=== PATIENT | male | born 2000 | race Caucasian/White ===

== ENCOUNTER 2025-10-06 17:52 | Emergency (ER) | payer OTHER, SELFPAY ==
[2025-10-06 17:58] VITALS: BP 117/71; PULSE 77; TEMP 36.6; O2SAT 99; BMI 28.2
[2025-10-06 18:31] VITALS: O2SAT 98
--- NOTE | 2025-10-06 18:34 | PC.NURSE ---
pt cooperative with staff, this RN performed EKG on pt. pt restless in ED room. denies hallucinations. pt states depressed with mild SI . denies homicidal ideation, states recent meth use and concern for meth withdrawl.
--- OUTSIDE RECORDS SUMMARY | 2025-10-06 19:06 | XMS_ITS | Clinical Summary ---
Author Organization [facility] Address [address] [facility] [place] [address] Care Team Providers Care Oxide Furnace Tender Name Role Phone Unavailable Primary Care Provider Unavailabl e Source Comments The following information is NOT included in Care Everywhere downloads:Psychiatric notes, ECG results, Cardiac Rehab notes, Pulmonary Function notes, data from [employer] (includes but not limited toPregnancy data,audiograms, eye exams, pre-surgical evaluation notes, well-child exam data).[facility] Allergies Active AllergyReactionsCriticalityNoted DateCommentsPenicillin IKhgxy0809/02/2025 Medications MedicationSigDispense QuantityRefillsLast FilledStart DateEnd DateStatus ARIPiprazole (ABILIFY) 15 MG tablet Take 15 mg by mouth.05/26/2024ctive cloNIDine (CATAPRES) 0.1 MG tablet 04/09/2025tive hydrocortisone 1 % cream Apply 1 Application topically daily.05/26/2024ctive hydrOXYzine (ATARAX) 10 MG tablet Take 10 mg by mouth 3 times daily as needed.Active metFORMIN (GLUCOPHAGE) 500 MG tablet Take 500 mg by mouth.Active mirtazapine (REMERON) 15 MG tablet Take 15 mg by mouth.05/26/2024ctive Multiple Vitamin (Multi-Vitamin) TABS Take 1 Tablet by mouth.05/26/2024ctive nicotine polacrilex (COMMIT) 4 MG lozenge nicotine (polacrilex) 4 mg buccal lozenge activeActive omeprazole (PRILOSEC) 20 MG capsule 04/09/2025tive ondansetron (ZOFRAN-ODT) 4 MG disintegrating tablet Take 4 mg by mouth 3 times daily as needed.03/26/2025tive pantoprazole (PROTONIX) 20 MG tablet Take 20 mg by mouth.05/26/2024ctive propranolol 20 MG tablet 04/05/2025Active risperiDONE (RISPERDAL) 0.25 MG tablet 5Active sertraline (ZOLOFT) 50 MG tablet TAKE 1 TABLET BY MOUTH ONCE DAILY FOR DEPRESSIONActive traZODone (DESYREL) 50 mg tablet Take 50 mg by mouth.4Active bacitracin 500 UNIT/GM OINT ointment Apply topically 3 times daily. Apply thin layer to affected area. 28 g 09/02/2025tive pantoprazole (PROTONIX) 40 MG tablet Take 1 Tablet by mouth daily. 30 Tablet 09/10/2025 6:40 PM EDT15Active famotidine (PEPCID) 20 MG tablet Take 1 Tablet by mouth daily. 30 Tablet 09/10/2025 6:40 PM EDT15Active albuterol (PROVENTIL) (2.5 MG/3ML) 0.083% nebulizer solution Use 3 mL via nebulizer every 4 hours as needed for Wheezing. 180 mL 09/10/2025 6:40 PM EDT15Active doxycycline (VIBRAMYCIN) 100 MG capsule Take 1 Capsule by mouth 2 times daily for 7 days. 14 Capsule Expired predniSONE (DELTASONE) 20 MG tablet Take 2 Tablets by mouth daily for 5 days. 10 Tablet Expired albuterol (PROVENTIL) (2.5 MG/3ML) 0.083% nebulizer solution Use 3 mL via nebulizer every 4 hours as needed for Wheezing. 180 mL Discontinued Active Problems ProblemNoted DateDiagnosed DateAnxiety, fzqwmrkzxyn37/11/2024Intravenous drug user07/17/2023Right arm pxmepvutbt87/25/2023utism spectrum zrqykrll10/26/2021 Methamphetamine use disorder, bycjyb7708/29/2021Methamphetamine abuse05/23/2021 Alcohol use disorder, moderate, vymjguhzjr49/22/2020Moderate episode of recurrent major depressive ontscbjq35/09/2020Major upjcgijbic95/30/2020Mood /18/2020Severe episode of recurrent major depressive disorder, without psychotic zazvpjtc38/18/2020Alcohol abuse12/24/2019 Encounters DateTypeDepartmentCare NbksVoctlktycsp57/11/2025Patient Outreach [facility] Care Management/Patient Access [address] [place] [phone] Yessi Britt Care Coordination; Medical Record Review; Appointment Khgwdahyeyxz64/03/2025 Patient Outreach [facility] Care Management/Patient Access [address] [place] [phone] Yessi Britt 09/11/2025Patient Outreach [facility] Care Management/Patient Access [address] [place] [phone] Yessi Britt ER follow-up; Care Coordination; Medical Record Review; APPOINTMENT SCHEDULING 09/10/2025 4:59 PM EDT - 09/10/2025 5:[facility] [address] [place] [phone] Julian Hanks MD Refill (Pt said he was seen in ED yesterday and was given a nebulizer but was not prescribed and medications ) Discharge Disposition: Discharge to Home09/10/20255925Bjbqme48/29/2025 1:35 PM EDT - 09/09/2025 2:31 PM [facility] [address] [place] [phone] Papito Palacios MD Cough (X a few days, quit smoking today, not c/o chest discomfort. /) Discharge Disposition: Mcuifl41Telephone [facility] Emergency Dept [address] [place] [phone] Amador Ruiz PA-C Requesting Hitiynutuiu79/29/2548Nrkarh88/27/2025 12:15 PM EDTOffice Visit [address], [address] [place] [address] Miryam Abrams APRN-[place]LEY Cough, unspecified type (Primary Dx)09/03/2025 1:37 PM EDT - 09/03/2025 3:33 PM [facility]TES[facility] [address] [place] [address] Naomi Varma MD Dreher, Paul, MD Duodenal ulcer (C/o n/v/d x 1 day pt states he has an ulcer ) Discharge Disposition: Discharge to Home09/03/20258484Ongyig42/23/2025Patient Outreach [facility] Care Management/Patient Access [address] [place] [address] Yessi Britt ER follow-up; Care Coordination; Medical Record Review; Left Message To Call Back; Reminder Letter Sent09/02/2025 8:57 PM EDT - 09/02/2025 10:[address] [facility] Emergency Dept [address] [place] [address] Billy Lei DO Foot/toe symptoms (Patient c/o right great toe pain and swelling ) Discharge Disposition: Discharge to Home09/02/2025Travelfrom Last 3 Months Immunizations ImmunizationAdministration DatesNext DueHPV, 9-valent (Gardasil 9) (XIJ=936) 11/01/2021,10/03/2021Hep A (peds/adol, 2 dose) (CVX=83)03/31/2010,07/27/2008Hep B (adult, 3-dose) or (adol 11-15, 2-dose) (CVX=43)11/01/2021,10/03/2021Hepatitis A, Adult (CVX=52)09/19/2021Influenza, seasonal, [place], quadrivalent, 0.5mL dose, no preservative (TMA=736)09/19/2021Meningococcal conjugate (MCV4,Men-ACWY), Menactra (MCV4P) (JAK=707)03/31/2010Meningococcal conjugate (MCV4,Men-ACWY), Menveo (MCV4O) (FXF=863)06/21/2017Moderna Monovalent (12+ yrs) COVID-19 vaccine, mRNA, spike protein, LNP, PF, 100 mcg/0.5 mL (FFO=090)09/19/2021Tdap (GCI=870)09/19/2021,05/02/2018,03/31/2010Varicella (Chickenpox) (CVX=21)07/27/2008,03/19/2002 Social History Tobacco UseTypesPacks/DayYears UsedDateSmoking Tobacco: NeverSmokeless Tobacco: Never Tobacco Cessation:Counseling Given: Not Answered Sex and Gender InformationValueDate RecordedSex Assigned at BirthNot on file Legal YaqByws86/22/2025 8:51 PM EDTGender IdentityNot on fileSexual Orientation Not on file Last Filed Vital Signs Vital SignReadingTime TakenCommentsBlood Aqkhtygm110/7909/10/2025 5:05 PM EDT Ztdan407609/10/2025 5:05 PM DWJDmwjfwpvfgo41.8 ??C (98.3 ??F)09/10/2025 5:05 PM EDTRespiratory Neff6167 5:05 PM EDTOxygen Nwbtrsrnmr28%09/10/2025 5:05 PM EDTInhaled Oxygen Concentration--Urxqnz54.8 kg (191 lb 6.4 oz)09/09/2025 1:38 PM EDTHeight--Body Mass Index-- Plan of Treatment Health MaintenanceDue DateLast DoneCommentsPneumococcal Vaccine(s) (1 of 2 - PCV)2017HPV Vaccine (3 - Male 3-dose series), 10/03/2021Hepatitis B (HBV) Vaccine (3 of 3 - 19+ 3-dose series)04/02/2022 11/01/2021, 10/03/2021OVID-19 Vaccine (2 - 2024- season) Influenza Vaccine (#1)2025Tetanus (Td or Tdap) Ewqaest7809/19/2031 09/19/2021, 05/02/2018, 03/31/2010Shingles (RZV) Vaccine (1 of 2)2048 Hepatitis A (HAV) BdysospZrmaeuloq98/08/2021, 03/31/2010, 07/27/2008Tdap Booster Ajvpircmj12/08/2021, 05/02/2018, 03/31/2010HIV WebqMdemgtfby50/24/2023Hepatitis C AqmouqjuMrjwxqvlg64/24/2023 Procedures Procedure NamePriorityDate/TimeAssociated DiagnosisCommentsXR CHEST PA+LAT 2 YUXCMRMKE36/29/2025 2:05 PM EDT EKG 12 LEAD - TRZTBWLVjdjyxp47/29/2025 1:[address] ABD/PELVIS ED I/V BRAYAN W/ LYADDVAJRFXE27/23/2025 2:37 PM EDT CBC WITH LLCAPOXVXKDYLMYI53/23/2025 2:03 PM EDT PJXLSZKRQG13/23/2025 2:03 PM EDT COMPLETE BLOOD COUNT W/NDMYBFBV39/23/2025 2:03 PM EDT ORJJSDPBXBTHX58/23/2025 2:03 PM EDT HC HEPATIC FUNCTION CSOHJDCPE33/23/2025 2:03 PM EDT BASIC METABOLIC JRIRXVBTS23/23/2025 2:03 PM EDT XR FOOT RIGHT 3 TXLDJASKX04/22/2025 9:29 PM EDT from Last 3 Months Results * XR CHEST PA+LAT 2 VIEWS (09/09/2025 2:05 PM EDT)Anatomical RegionLaterality ModalityXR ChestN/AComputed RadiographySpecimen (Source)Anatomical Location / LateralityCollection Method / VolumeCollection TimeReceived Time09/09/2025 2:19 PM EDT Narrative 09/09/2025 2:50 PM EDT EXAMINATION: XR CHEST PA+LAT 2 VIEWSPRO 09/09/2025 02:05 PM CLINICAL HISTORY: cough, worse wheezing ASSOCIATED DIAGNOSIS: cough, worse wheezing ORDERING PROVIDER: AMADOR RUIZ TECHNOLOGISTS NOTE: COMPARISON: CT ABD/PELVIS ED I/V BRAYAN W/ CONTRAST 09/03/2025 2:39 PM FINDINGS: Cardiomediastinal silhouette: Normal. Lungs/Pleura: No focal pulmonary consolidation, effusion or pneumothorax. The lungs are hyperinflated. Musculoskeletal: Unremarkable. IMPRESSION: Hyperinflation without focal consolidation. MACRO: None I have personally reviewed the images and agree with the resident's interpretation. Procedure Note Fortunato Oquendo MD - 09/09/2025 EXAMINATION: XR CHEST PA+LAT 2 VIEWSPRO 09/09/2025 02:05 PM CLINICAL HISTORY: cough, worse wheezing ASSOCIATED DIAGNOSIS: cough, worse wheezing ORDERING PROVIDER: AMADOR RUIZ TECHNOLOGISTS NOTE: COMPARISON: CT ABD/PELVIS ED I/V BRAYAN W/ CONTRAST 09/03/2025 2:39 PM FINDINGS: Cardiomediastinal silhouette: Normal. Lungs/Pleura: No focal pulmonary consolidation, effusion or pneumothorax.The lungs are hyperinflated. Musculoskeletal: Unremarkable. IMPRESSION: Hyperinflation without focal consolidation. MACRO: None I have personally reviewed the images and agree with the resident's interpretation. Authorizing ProviderResult TypeResult StatusSoutheastern Arizona Behavioral Health Servicessidney Ruiz PA-CEC DIAGNOSTIC X-RAY 2Final Result * EKG 12 LEAD - PERFORM (09/09/2025 1:35 PM EDT)ComponentValueRef RangeTest MethodAnalysis TimePerformed AtPathologist SignatureVentricular jvhg41TNDINJC Atrial Eymw93QYYCGLLI-N Qfcjgzkf850bgPLPTGSE zcqfuenx18roNMHBQ-K fdpvxflq030vk MUSEQTC CALCULATION(BEZET)389msMUSEP xxsx29iwjukueJDTQM cozp7nmefowhPYMIY axis 38degreesMUSEDiagnosisNormal sinus rhythm with sinus arrhythmia Normal ECG No previous ECGs available Confirmed by KATYA SEPULVEDA ([id number]) on 09/09/2025 4:39:34 PM MUSESpecimen (Source)Anatomical Location / LateralityCollection Method / Volume Collection TimeReceived Time09/09/2025 1:35 PM EDT1 4:39 PM EDT Narrative Authorizing ProviderResult TypeResult StatusAnnaleAnaheim General Hospital PA-CIP VITAL SIGN ORDERSEdited Result - FinalPerforming OrganizationAddressCity/State/ZIP CodePhone Number MUSE Sandeep [facility] [place] [address] * CT ABD/PELVIS ED I/V BRAYAN W/ CONTRAST (09/03/2025 2:37 PM EDT)ComponentValue Ref RangeTest MethodAnalysis TimePerformed AtPathologist SignatureCTDI VOL0.20 (mGy),12.07 (mGy)RADIOLOGYPHANTOM TYPEIEC Body Dosimetry Phantom,IEC Body Dosimetry PhantomRADIOLOGYCT BTT949.92 (mGy.cm)RADIOLOGYCT Series ABD/PELVIS,ABD/PELVISRADIOLOGYAnatomical RegionLateralityModalityCT AbdomenN/A Computed TomographySpecimen (Source)Anatomical Location / LateralityCollection Method / VolumeCollection TimeReceived Time09/03/2025 3:00 PM EDT Narrative 09/03/2025 4:06 PM EDT EXAMINATION: CT ABD/PELVIS ED I/V BRAYAN W/ CONTRASTPRO 09/03/2025 02:37 PM CLINICAL HISTORY: Epigastric pain; Vomiting ASSOCIATED DIAGNOSIS: Epigastric pain Vomiting ORDERING PROVIDER: TRISHA GOULD TECHNOLOGISTS NOTE: COMPARISON: None TECHNIQUE: Contiguous axial images were obtained through the abdomen and pelvis from the level of the diaphragmatic domes through the pubic symphysis following bolus administration of intravenous contrast. MPR sagittal and coronal reconstructions were obtained from the axial data. Before infusion of intravenous contrast, radiology personnel investigated the possibility of an allergic history and of any history of reaction to iodinated contrast material. Contrast Protocol: Omnipaque 350 [>or =100lb] 100 ml [<100 lb] 1 ml per 1 lb. INTRA-PROCEDURE MEDS: iohexol (OMNIPAQUE) 350 MG/ML injection 100 mL Route: Intravenous FINDINGS: Included images of the lower thorax: Evaluation is limited due to motion artifact. Linear juxtapleural nodularity in the lateral left lower lobe (Series 201, Image 5), focal area of atelectasis versus a subpleural lymph node. No focal lung consolidation or pleural effusion. Hepatobiliary: The liver parenchyma has low attenuation consistent with hepatic steatosis. No focalsuspicious hepatic lesion is present. There is no biliary dilatation. Incomplete distention of the bladder limits the evaluation. Focal area of fatty infiltration along the falciform ligament. Partial contraction of the gallbladder limits the evaluation. Pancreas: Unremarkable Spleen: Unremarkable Adrenal Glands: Unremarkable Kidneys, ureters, and bladder: No calculi or hydroureteronephrosis. Incomplete distention of the bladder limits the evaluation. Abdominal and pelvic vasculature: Unremarkable GI tract: No evidence of obstruction. The appendix is surgically absent. Physiologic distention of the stomach with intraluminal debris. Peritoneum and retroperitoneum: No free fluid or free air. Tiny fat-containing midline ventral umbilical hernia. Lymph Nodes: No abdominal or pelvic lymphadenopathy. Prostate and seminal vesicles: Suboptimally evaluated by CT. Visualized musculoskeletal structures: No acute fracture or destructive osseous lesion is identified. Focal area of nonspecific subcutaneous density in the left posterior gluteal (Series 201, Image 115) region, of unknown clinical significance. IMPRESSION: 1. ??No CT findings to explain patient's epigastric pain. MACRO: None Procedure Note Janay Garcia MD - 09/03/2025 EXAMINATION: CT ABD/PELVIS ED I/V BRAYAN W/ CONTRASTPRO 09/03/2025 02:37PM CLINICAL HISTORY: Epigastric pain; Vomiting ASSOCIATED DIAGNOSIS: Epigastric pain Vomiting ORDERING PROVIDER: TRISHA GOULD TECHNOLOGISTS NOTE: COMPARISON: None TECHNIQUE: Contiguous axial images were obtained through the abdomen andpelvis from the level of the diaphragmatic domes through the pubicsymphysis following bolus administration of intravenous contrast. MPRsagittal and coronal reconstructions were obtained from the axial data.Before infusion of intravenous contrast, radiology personnel investigatedthe possibility of an allergic history and of any history of reaction toiodinated contrast material. Contrast Protocol: Omnipaque 350 [>or =100lb]100 ml [<100 lb] 1 ml per 1 lb. INTRA-PROCEDURE MEDS: iohexol (OMNIPAQUE) 350 MG/ML injection 100 mL Route: Intravenous FINDINGS: Included images of the lower thorax: Evaluation is limited due to motion artifact. Linear juxtapleural nodularity in the lateral left lower lobe(Series 201, Image 5), focal area of atelectasis versus a subpleural lymphnode. No focal lung consolidation or pleural effusion. Hepatobiliary: The liver parenchyma has low attenuation consistent withhepatic steatosis. No focal suspicious hepatic lesion is present. There isno biliary dilatation. Incomplete distention of the bladder limits theevaluation. Focal area of fatty infiltration along the falciform ligament.Partial contraction of the gallbladder limits the evaluation. Pancreas: Unremarkable Spleen: Unremarkable Adrenal Glands: Unremarkable Kidneys, ureters, and bladder: No calculi or hydroureteronephrosis.Incomplete distention of the bladder limits the evaluation. Abdominal and pelvic vasculature: Unremarkable GI tract: No evidence of obstruction. The appendix is surgically absent. Physiologic distention of the stomach with intraluminal debris. Peritoneum and retroperitoneum: No free fluid or free air. Tinyfat-containing midline ventral umbilical hernia. Lymph Nodes: No abdominal or pelvic lymphadenopathy. Prostate and seminal vesicles: Suboptimally evaluated by CT. Visualized musculoskeletal structures: No acute fracture or destructiveosseous lesion is identified. Focal area of nonspecific subcutaneousdensity in the left posterior gluteal (Series 201, Image 115) region, ofunknown clinical significance. IMPRESSION: 1. No CT findings to explain patient's epigastric pain. MACRO: None Authorizing ProviderResult TypeResult StatusTheresa Kae PA-CEC CT SCANFinal Result * (ABNORMAL) CBC WITH DIFFERENTIAL (09/03/2025 2:03 PM EDT)ComponentValueRef RangeTest MethodAnalysis TimePerformed AtPathologist SignatureWBC9.54.5 - 11.5 K/uL09/03/2025 2:23 PM [facility] PATHOLOGY LABORATORYRBC4.78 4.50 - 5.90 M/uL09/03/2025 2:23 PM [facility] PATHOLOGY OAVYYIVSCTUqjqlnxzub81.213.9 - 16.3 g/dL09/03/2025 2:23 PM [facility] PATHOLOGY XVBSRKILXHQdmfvdxylu53.341.0 - 53.0 %09/03/2025 2:23 PM EDT [facility] PATHOLOGY KWXPDTTELVRJP9022 - 100 fL09/03/2025 2:23 PM [facility] PATHOLOGY DLDDZSNPAPPNY60.726.0 - 34.0 pg09/03/2025 2:23 PM [facility] PATHOLOGY HZZCVCJCYOWDQC62.232.0 - 35.9 g/dL 09/03/2025 2:23 PM [facility] PATHOLOGY FTHTDALNDUEgwzfsyv579384 - 400 K/uL09/03/2025 2:23 PM [facility] PATHOLOGY LABORATORY RDW-CV12.811.5 - 14.5 %09/03/2025 2:23 PM [facility] PATHOLOGY LABORATORYMPV7.67.5 - 11.2 fL09/03/2025 2:23 PM [facility] PATHOLOGY LWRWHENCHJQczlhpalnhm41.131.0 - 76.0 %09/03/2025 2:23 PM [facility] PATHOLOGY LABORATORYNeutrophil #6.601.50 - 8.00 K/uL 09/03/2025 2:23 PM [facility] PATHOLOGY LABORATORYLymphocytes 21.0(L)24.0 - 44.0 %09/03/2025 2:23 PM [facility] PATHOLOGY LABORATORYLymphocytes #2.001.00 - 4.80 K/uL09/03/2025 2:23 PM [facility] PATHOLOGY LABORATORYMonocytes6.62.0 - 11.0 %09/03/2025 2:23 PM [facility] PATHOLOGY LABORATORYMonocyte #0.600.20 - 1.00 K/uL09/03/2025 2:23 PM [facility] PATHOLOGY LABORATORYEosinophil1.60.1 - 4.0 % 09/03/2025 2:23 PM [facility] PATHOLOGY LABORATORYEosinophil # 0.200.00 - 0.70 K/uL09/03/2025 2:23 PM [facility] PATHOLOGY LABORATORYBasophils0.7<=1.9 %09/03/2025 2:23 PM [facility] PATHOLOGY LABORATORYBasophil #0.100.00 - 0.20 K/uL09/03/2025 2:23 PM [facility] PATHOLOGY LABORATORYNucleated RBC<1.510/ 2:23 PM [facility] PATHOLOGY LABORATORYNucleated RBC #0.00K/uL09/03/2025 2:23 PM [facility] PATHOLOGY LABORATORYSpecimen (Source) Anatomical Location / LateralityCollection Method / VolumeCollection Time Received TimeBloodBLOOD SPECIMEN / UnknownVenipuncture / Ucjmmjy8609/03/2025 2:03 PM EDT1 2:20 PM EDT Narrative Authorizing ProviderResult TypeResult StatusTherjaycee MCNEALCEC LAB ORDER ONLY Final ResultPerforming OrganizationAddressCity/State/ZIP CodePhone Number [facility] PATHOLOGY LABORATORY [address] * HEPATIC FUNCTION PANEL (09/03/2025 2:03 PM EDT)ComponentValueRef RangeTest MethodAnalysis TimePerformed AtPathologist SignatureAlbumin4.73.5 - 5.7 g/dL 09/03/2025 2:56 PM [facility] LABORATORYBilirubin, Direct0.060.03 - 0.18 mg/dL09/03/2025 2:56 PM [facility] PATHOLOGY LABORATORYBilirubin, Total0.40.3 - 1.0 mg/dL09/03/2025 2:56 PM EDT [facility] PATHOLOGY LABORATORYComment:Note updated reference range.Alkaline Capueooiesw6269 - 104 IU/L1 2:56 PM [facility] PATHOLOGY LABORATORYALT (SGPT)127 - 52 IU/L1 2:56 PM [facility] PATHOLOGY LABORATORYAST (SGOT)1613 - 39 IU/L1 2:56 PM [facility] PATHOLOGY LABORATORYProtein, Total7.46.1 - 7.9 g/dL09/03/2025 2:56 PM [facility] PATHOLOGY LABORATORYComment: Note updated reference range.Specimen (Source)Anatomical Location / Laterality Collection Method / VolumeCollection TimeReceived TimeBloodBLOOD SPECIMEN / UnknownVenipuncture / Nrrhchx3909/03/2025 2:03 PM EDT1 2:20 PM EDT Narrative Authorizing ProviderResult TypeResult StatusTrisha MCNEALC98 GENERAL LAB Final ResultPerforming OrganizationAddressCity/State/ZIP CodePhone Number [facility] PATHOLOGY LABORATORY [address] * (ABNORMAL) BASIC METABOLIC PANEL (09/03/2025 2:03 PM EDT)ComponentValueRef RangeTest MethodAnalysis TimePerformed AtPathologist YsmwymecbTfkfkgp304(H)74 - 109 mg/dL09/03/2025 2:56 PM [facility] PATHOLOGY LABORATORY Huiwwy722104 - 145 mmol/L1 2:56 PM [facility] PATHOLOGY LABORATORYPotassium4.03.5 - 5.0 mmol/L1 2:56 PM [facility] PATHOLOGY LABORATORYCarbon Eidwxvy4528 - 31 mmol/L1 2:56 PM [facility] PATHOLOGY BFYJAKVXRRXslxpxks23688 - 107 mmol/L 09/03/2025 2:56 PM [facility] PATHOLOGY LABORATORYBlood Urea Yeynxlwz547 - 25 mg/dL09/03/2025 2:56 PM [facility] PATHOLOGY LABORATORYCreatinine1.060.70 - 1.30 mg/dL09/03/2025 2:56 PM [facility] PATHOLOGY LABORATORYCalcium9.98.6 - 10.3 mg/dL09/03/2025 2:56 PM EDT [facility] PATHOLOGY LABORATORYAnion Zut0643 - 2:56 PM [facility] PATHOLOGY LABORATORYEstimated GFR (CKD-EPI)99>=60 mL/min/1.27wcu71 2:56 PM [facility] PATHOLOGY LABORATORY Comment: 2020 CKD EPI Equation using Creatinine without Race Comment: ??Estimated glomerular filtration rate (eGFR) is calculated without a race coefficient. Values should be interpreted in the context of the patient's full clinical presentation. Reference: 1. Jamar C, Koko M, Kaylie SHEA, et al.. A Unifying Approach for GFR Estimation: Recommendations of the NKF-ASN Task Force on Reassessing the Inclusion of Race in Diagnosing Kidney Disease. AmericanJournal of Kidney Diseases 2021;79(2):268-88.e1. 2. N Engl J Med 1 Vol. 385 Issue 19 Pages 1480-9301 Specimen (Source)Anatomical Location / LateralityCollection Method / Volume Collection TimeReceived TimeBloodBLOOD SPECIMEN / UnknownVenipuncture / Unknown 09/03/2025 2:03 PM EDT1 2:20 PM EDT Narrative Authorizing ProviderResult TypeResult StatusTherjaycee MCNEALC98 GENERAL LAB Final ResultPerforming OrganizationAddressCity/State/ZIP CodePhone Number [facility] PATH[facility] LABORATORY [address] [place] [address] * MAGNESIUM (09/03/2025 2:03 PM EDT)ComponentValueRef RangeTest MethodAnalysis TimePerformed AtPathologist SignatureMagnesium2.11.9 - 2.7 mg/dL09/03/2025 2:56 PM [facility] PATHOLOGY LABORATORYSpecimen (Source) Anatomical Location / LateralityCollection Method / VolumeCollection Time Received TimeBloodBLOOD SPECIMEN / UnknownVenipuncture / Pklcyck0009/03/2025 2:03 PM EDT1 2:20 PM EDT Narrative Authorizing ProviderResult TypeResult StatusTherjaycee MCNEALC98 GENERAL LAB Final ResultPerforming OrganizationAddressCity/State/ZIP CodePhone Number [facility]ORY [address] [place] [address] * LIPASE (09/03/2025 2:03 PM EDT)ComponentValueRef RangeTest MethodAnalysis Time Performed AtPathologist BufcouahuDutefv2990 - 82 IU/L1 2:56 PM [facility] PATHOLOGY LABORATORYSpecimen (Source)Anatomical Location / LateralityCollection Method / VolumeCollection TimeReceived TimeBloodBLOOD SPECIMEN / UnknownVenipuncture / Izwvxss8809/03/2025 2:03 PM EDT1 2:20 PM EDT Narrative Authorizing ProviderResult TypeResult StatusTherjaycee MCNEALC98 GENERAL LAB Final ResultPerforming OrganizationAddressCity/State/ZIP CodePhone Number [facility] [address] [place] [address] * XR FOOT RIGHT 3 VIEWS (09/02/2025 9:29 PM EDT)Anatomical RegionLaterality ModalityXR Right Lower Extremity, FootRightComputed RadiographySpecimen (Source)Anatomical Location / LateralityCollection Method / VolumeCollection TimeReceived Time09/02/2025 9:42 PM EDT Narrative 09/02/2025 9:58 PM EDT EXAMINATION: XR FOOT RIGHT 3 VIEWSPRO/RT 09/02/2025 09:29 PM CLINICAL HISTORY: right great toe swelling ASSOCIATED DIAGNOSIS: ORDERING PROVIDER: FORTUNATO ROE NOTE: COMPARISON: None IMPRESSION: No acute right foot fracture or dislocation is identified. No radiopaque foreign bodies. No erosions. Moderate first digit soft tissue swelling. Right foot MACRO: None I have personally reviewed the images and agree with the resident's interpretation. Procedure Note Carmel Fuentes MD - 09/02/2025 EXAMINATION: XR FOOT RIGHT 3 VIEWSPRO/RT 09/02/2025 09:29 PM CLINICAL HISTORY: right great toe swelling ASSOCIATED DIAGNOSIS: ORDERING PROVIDER: FORTUNATO ROE NOTE: COMPARISON: None IMPRESSION: No acute right foot fracture or dislocation is identified. No radiopaqueforeign bodies. No erosions. Moderate first digit soft tissue swelling. Right foot MACRO: None I have personally reviewed the images and agree with the resident's interpretation. Authorizing ProviderResult TypeResult StatusMichael Corey PA-CEC DIAGNOSTIC X-RAYFinal Result from Last 3 Months Insurance
--- OUTSIDE RECORDS SUMMARY | 2025-10-06 19:06 | XMS_ITS | Encounter Summary ---
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 Name Role Phone Unavailable Primary Care Provider Unavailabl e Reason for Visit * ReasonCommentsCare CoordinationMedical Record ReviewAppointment Confirmation Encounter Details DateTypeDepartmentCare Team (Latest Contact Info)Rvogwhbkdzf12/11/2025Patient Outreach [facility] Care Management/Patient Access [address] [place], [place] [id number] Yessi Britt [address] [place], [place] [id number] Care Coordination; Medical Record Review; Appointment Confirmation Social History Tobacco UseTypesPacks/DayYears UsedDateSmoking Tobacco: NeverSmokeless Tobacco: NeverSex and Gender InformationValueDate RecordedSex Assigned at BirthNot on fileLegal BvtJrmj80/22/2025 8:51 PM EDTGender IdentityNot on fileSexual OrientationNot on filedocumented as of this encounter Miscellaneous Notes * Telephone Encounter - Yessi Britt - 09/22/2025 3:11 PM EST Home Office Claim Specialist Chart Review Follow Up Upon chart review 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 Outreach made to patient to assist with rescheduling- Pt answered the call and then disconnected. Attempted to call back and no answer - LVM Letter sent . documented in this encounter Plan of Treatment Not on file documented as of this encounter Visit Diagnoses Not on filedocumented in this encounter
--- OUTSIDE RECORDS SUMMARY | 2025-10-06 19:06 | XMS_ITS ---
Author Organization [facility] Address [address] [place] [address] Care Team Providers Care Aircraft Mechanic Armament Name Role Phone Unavailable Primary Care Provider Unavailabl e General Case Management Program Status:Closed (Closed) Start date:09/11/2025 Enrollment date:09/14/2025 Enrollment reason:Identified using ED discharge data End date:09/22/2025 Close reason:Focused outreach encounter completed Related social drivers of health:Intimate Partner Violence, Social Connections, Alcohol Use, Financial Resource Strain, Depression, Stress, Physical Activity, Food Insecurity, Transportation Needs, Housing Stability Continued Care and Services Coordination
--- NOTE | 2025-10-06 19:13 | ECG_ITS ---
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 Measurements Intervals [place] Rate: 60 P: 47 ID: [id number] QRS: 72 QRSD: 88 T: 21 QT: 376 QTc: 377 Interpretive Statements 1100 Sinus rhythm 9110 normal ECG No previous ECG available for comparison Electronically Signed On 10-06-2025 22:12:00 EST by ASCENCION VILLALTA M.D.
[2025-10-06] MEDS: CEPHALEXIN 500 MG CAPSULE PO (19:38)
[2025-10-06 19:51] LABS: Hematocrit 46.0 % (42.0-54.0); Hemoglobin 15.3 g/dL (14.0-18.0); Immature Granulocytes Abs Auto 0.04 10^3/uL (0.00-0.03); Immature Granulocytes Pct Auto 0.5 % (0.0-0.5); Lymphocytes Absolute Auto 2.5 10^3/uL (1.2-3.8); Mean Corpuscular HGB Conc 33.3 g/dL (29.9-35.2); Mean Corpuscular Hemoglobin 31.7 pg (25.9-34.0); Mean Corpuscular Volume 95.2 fL (80.0-94.0); Platelet Count 289 10^3/uL (150-450); Red Blood Count 4.83 10^6/uL (4.70-6.10); White Blood Count 8.4 10^3/uL (4.0-11.0)
[2025-10-06 19:56] LABS: Glucose Urine UA NEGATIVE (NEGATIVE)
[2025-10-06 20:02] LABS: Anion Gap 9.3; Blood Urea Nitrogen 17.0 mg/dL (7.0-18.0); Calcium 9.3 mg/dL (8.5-10.1); Carbon Dioxide 32.5 mmol/L (21.0-32.0); Chloride 101 mmol/L (98-107); Estimated GFR (African America >60 (>=60 mL/min/1.73m^2); Estimated GFR (Non-African Ame >60 (>=60 mL/min/1.73m^2); Glucose 94 mg/dL (74-106); Potassium 4.8 mmol/L (3.5-5.1); Sodium 138 mmol/L (136-145)
[2025-10-06 20:05] LABS: Cannabinoid Screen Urine POSITIVE (NEGATIVE); Methamphetamines Screen Urine NEGATIVE (NEGATIVE); Tricyclic Antidepressant Urine NEGATIVE (NEGATIVE)
--- NOTE | 2025-10-06 20:08 | ED_ITS ---
HPI HPI - General Adult General Chief complaint: Psychiatric Symptoms Stated complaint: RIGHT TOE INFECTED Time Seen by Provider: 10/06/25 18:16 Source: patient Mode of arrival: walk-in History of Present Illness HPI narrative: Patient is a 24-year-old male who presents to the emergency department with complaints of an infection starting on his right great toe. The redness started about 2 days ago, he denies any trauma to the toe. He also reports that he is at [facility] and was having thoughts of suicide today. 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 He does have a history of depression that he takes Zoloft for. He does have a history of a past suicide attempt but denies any specific plan of suicide.. He states the only new thing in his life is his detoxification from meth. On my arrival for evaluation he declined having suicidal ideations after originally reporting to someone else that he did. For his great toe he had an infection about a month ago and was treated with antibiotics at the hospital. He is unsure what hospital this was. He never followed up with anyone afterwards and just finished all the antibiotics. He is not diabetic. Related Data Home Medications ?Medication ?Instructions ?Recorded ?Confirmed aripiprazole 15 mg tablet (Abilify) 15 mg PO DAILY 10/06/25 sertraline 100 mg tablet (Zoloft) 100 mg PO DAILY 09/1310/06/25 Previous Rx's ?Medication ?Instructions ?Recorded doxycycline hyclate 100 mg tablet 100 mg PO BID 7 days #14 tabs 10/06/25 Allergies Allergy/AdvReac Type Severity Reaction Status Date / Time Penicillins Allergy Hives Verified 10/06/25 17:57 Opioid HPI Opioid Management Most Recent Opioid Data: Last Pain Scale 8 Today, 17:58 Ur Phencyclidine Scrn, (NEGATIVE) Negative Today, 19:20 Review of Systems ROS Status of ROS 10 or more systems reviewed and unremark able except as noted in history and below PFSH PFSH Social History Little interest or pleasure in doing things: not at all Feeling down, depressed, or hopeless: more than half the days Exam Narrative Exam Narrative: General: No distress, age-appropriate Skin: Warm, dry, no pallor. No rash. Head: Normocephalic, atraumatic. Neck: Supple, non-tender. Eye: Pupils are equal, round and EOMI. No scleral icterus. Ears, Nose, Mouth, and Throat: No nasal mucosal hypertrophy. Oral mucosa is arya st, no posterior oropharynx erythema, uvula is mid-line Cardiovascular: Regular Rate and Rhythm without murmur, gallop or rub. Respiratory: No accessory muscle use or respiratory distress. Musculoskeletal: Full ROM of all extremities, no calf or popliteal tenderness. Mild erythema at the right great toe medial nail fold. No induration. No drainage. No wounds. GI: Abdomen is soft, non-distended, non tender to palpation. No masses appreciated. No rebound, guarding, or rigidity noted. Neurological: A&O x4. No cranial nerve dysfunction observed. No truncal ataxia. Moves all extremities. Sensation intact. Psychiatric: Cooperative and interactive. Normal mood and affect. Constitutional Vital Signs, click to edit/add: Last Vital Signs Temp 97.9 F 10/06/25 17:58 Pulse 77 10/06/25 17:58 Resp 16 10/06/25 17:58 BP 117/71 10/06/25 17:58 Pulse Ox 98 10/06/25 18:31 O2 Del Method Room Air 10/06/25 18:31 Documenting provider has reviewed patient's vital signs: yes Course Vital Signs Vital signs: Vital Signs Temperature 97.9 F 10/06/25 17:58 Pulse Rate 77 10/06/25 17:58 Respiratory Rate 16 10/06/25 17:58 Blood Pressure 117/71 10/06/25 17:58 Pulse Oximetry 99 10/06/25 17:58 Oxygen Delivery Method Room Air 10/06/25 17:58 Temperature 97.9 F 10/06/25 17:58 Pulse Rate 77 10/06/25 17:58 Respiratory Rate 16 10/06/25 17:58 Blood Pressure 117/71 10/06/25 17:58 Pulse Oximetry 98 10/06/25 18:31 Oxygen Delivery Method Room Air 10/06/25 18:31 Medical Decision Making MDM Narrative Medical decision making narrative: 24-year-old male presents with 2 days of redness and pain to the right great toe without known trauma. He also reported suicidal thoughts earlier in the day while undergoing methamphetamine detox but denied active suicidal ideation or intent during my ED evaluation. Mental health provider contacted through [facility] and medical clearance workup ordered to include CBC, BMP, UA, urine drug screen, EtOH level, salicylates and acetaminophen levels. CBC and BMP within normal limits, UA negative for infection and WNL salicylates and Tylenol WNL, UDS positive for cannabinoids, EtOH level negative. EKG taken and reviewed, normal sinus rhythm, no ischemic changes. R Great Toe exam consistent with localized cellulitis; no fluctuance suggesting abscess and patient is nondiabetic. Given recurrent infection and communal [facility] environment, MRSA coverage is appropriate. Patient was treated in the ED with a dose of Keflex and discharged with a prescription for Doxycycline 100mg BID x 7 days for broader coverage. He was evaluated by mental health services, and a safety plan was completed. After discussion, he remained cooperative, future-oriented, and safe for discharge back to treatment facility with strict return precautions for any worsening infection symptoms or recurrence of suicidal thoughts. Differential Diagnosis Differential Diagnosis: Paronychia, cellulitis, abscess Lab Data Lab results reviewed: Yes I reviewed the patient's lab results Labs: Lab Results 10/06/25 10/06/25 Range/Units 19:20 19:38 WBC 8.4 (4.0-11.0) 10^3/uL RBC 4.83 (4.70-6.10) 10^6/uL Hgb 15.3 (14.0-18.0) g/dL Hct 46.0 (42.0-54.0) % MCV 95.2 H (80.0-94.0) fL MCH 31.7 (25.9-34.0) pg MCHC 33.3 (29.9-35.2) g/dL RDW 11.5 (11.0-15.0) % Plt Count 289 (150-450) 10^3/uL MPV 9.8 (9.5-13.5) fL Neut % (Auto) 60.3 (43.0-75.0) % Lymph % (Auto) 29.1 (20.5-60.0) % [place] % (Auto) 6.9 (1.7-12.0) % Eos % (Auto) 2.6 (0.9-7.0) % Baso % (Auto) 0.6 (0.2-2.0) % Neut # (Auto) 5.1 (1.4-6.5) 10^3/uL Lymph # (Auto) 2.5 (1.2-3.8) 10^3/uL [place] # (Auto) 0.6 (0.3-0.8) 10^3/uL Eos # (Auto) 0.2 (0.0-0.7) 10^3/uL Baso # (Auto) 0.1 (0.0-0.1) 10^3/uL Abs Immat Gran (auto) 0.04 H (0.00-0.03) 10^3/uL Imm/Tot Granulo (auto) 0.5 (0.0-0.5) % Sodium 138 (136-145) mmol/L Potassium 4.8 (3.5-5.1) mmol/L Chloride 101 (98-107) mmol/L Carbon Dioxide 32.5 H (21.0-32.0) mmol/L Anion Gap 9.3 BUN 17.0 (7.0-18.0) mg/dL Creatinine 1.11 (0.70-1.30) mg/dL Est GFR ( Amer) >60 (>=60 mL/min/1.73m^2) Est GFR (Non-Af Amer) >60 (>=60 mL/min/1.73m^2) BUN/Creatinine Ratio 15.3 Glucose 94 (74-106) mg/dL Calcium 9.3 (8.5-10.1) mg/dL Urine Color Yellow (YELLOW) Urine Clarity Clear (CLEAR) Urine pH 6.5 (5.0-9.0) Ur Specific [place] 1.020 (1.005-1.025) Urine Protein Negative (NEG/TRACE) mg/dL Urine Glucose (UA) Negative (NEGATIVE) mg/dL Urine Ketones Negative (NEGATIVE) mg/dL Urine Occult Blood Negative (NEGATIVE) Urine Nitrite Negative (NEGATIVE) Urine Bilirubin Negative (NEGATIVE) Urine Urobilinogen 0.2 (0.2-1.0) EU/dL Ur Leukocyte Esterase Negative (NEGATIVE) Salicylates 3.0 (<=19.9) mg/dL Urine Opiates Screen Negative (NEGATIVE) Ur Buprenorphine Scrn Negative (NEGATIVE) Ur Oxycodone Screen Negative (NEGATIVE) Urine Methadone Screen Negative (NEGATIVE) Acetaminophen <2.0 L (10.0-30.0) ug/mL Ur Barbiturates Screen Negative (NEGATIVE) U Tricyclic Antidepress Negative (NEGATIVE) Ur Phencyclidine Scrn Negative (NEGATIVE) Ur Amphetamines Screen Negative (NEGATIVE) U Methamphetamines Scrn Negative (NEGATIVE) U Benzodiazepines Scrn Negative (NEGATIVE) Urine Cocaine Screen Negative (NEGATIVE) U Cannabinoids Screen Positive A (NEGATIVE) Ethanol Quant <3 mg/dL ECG Data Attestation: ?I have reviewed the pertinent ECG results. Discharge Plan Discharge Chief Complaint: Psychiatric Symptoms Clinical Impression: Suicidal ideation, Paronychia, Cellulitis Patient Disposition: Home, Self-Care Time of Disposition Decision: 20:39 Condition: Good Mode of Transportation: Private Vehicle Prescriptions / Home Meds: New doxycycline hyclate 100 mg tablet 100 mg PO BID 7 Days Qty: 14 0RF No Action sertraline [Zoloft] 100 mg tablet 100 mg PO DAILY aripiprazole [Abilify] 15 mg tablet 15 mg PO DAILY Print Language: Telugu Instructions: Paronychia (ED) Referrals: Physician,Non-Staff, MD [Primary Care Provider] - 1 week
[2025-10-06 20:11] LABS: Acetaminophen <2.0 ug/mL (10.0-30.0); Salicylate 3.0 mg/dL (<=19.9)
== END 2025-10-06 21:48 | disposition home or self-care (01) ==
PROVIDERS: Physician Assistant; Emergency Provider Emergency Medicine
DX: R45.851 Suicidal ideations (principal); L03.031 Cellulitis of right toe; F32.A Depression, unspecified; Z91.51 Personal history of suicidal behavior
CPT/HCPCS: 36415; 80048; 80179; 80307; 80320; 80329; 81003; 85025; 93005; 99285